=== PATIENT | female | born 1960 | race Caucasian/White ===

== ENCOUNTER 2017-05-02 16:58 | Emergency (ER) | payer SELFPAY ==
[~2017-05-02 16:58] MED LIST: Z.0.NO CURRENT MEDS
[2017-05-02 17:05] VITALS: BP 185/89; PULSE 81; RESP 18; TEMP 98.4; O2SAT 97
[2017-05-02] MEDS ORDERED: MORPHINE SULFATE 4 MG/ML INJ IV PUSH ONE (17:30)
[2017-05-02] MEDS ORDERED: SODIUM CHLOR 0.9% 1000 ML INJ 1,000 ML IV SCH (17:30)
[2017-05-02] MEDS ORDERED: ONDANSETRON HCL 4 MG/2 ML VIAL IV PUSH ONE (17:30)
--- NOTE | 2017-05-02 17:32 | PD ---
HPI Chief Complaint: Cardiac Complaint Time Seen by Provider: 17:05 Travel History International Travel<30 days: No Contact w/Intl Traveler<30days: No Traveled to known affect area: No History of Present Illness HPI 56 years old female complains of chest pain and upper back pain. Patient states that the symptoms started 2 days ago. Patient states the pain is sharp stabbing pain between her shoulder blade with radiation to the shoulder and anterior chest. Patient denies any fever chills. Patient states the pain is worse with movement and deep breathing. Patient denies any history of CAD. Patient denies any history of attention, diabetes, hyperlipidemia. Patient is a smoker. Patient has family history of heart disease. Patient states that she has mild dry cough recently. Patient states that she has some tightness around the chest wall also. Patient has diaphoresis with the pain. on a scale of 1-10 the pain is an 8. Patient has been taking ibuprofen without much relief of the pain. PFSH Past Medical History Autoimmune Disease: No Blood Disorders: No Cancer: No Cardiovascular Problems: No Diminished Hearing: No Musculoskeletal: No Neurologic: No Psychiatric: No Respiratory: No Menopausal: Yes Ectopic : Yes (x 2) Past Surgical History Abdominal Surgery: No Cardiac Surgery: No Section: Yes Cholecystectomy: Yes Ear Surgery: No Endocrine Surgery: No Eye Surgery: No Genitourinary Surgery: No Gynecologic Surgery: Yes (1986 , ECTOPIC) Hysterectomy: Yes Oral Surgery: No Thoracic Surgery: No Social History Alcohol Use: Yes (ON OCCASION) Tobacco Use: Yes (SMOKES <1 PPD) Substance Use: No Allergies-Medications (Allergen,Severity, Reaction): Coded Allergies: codeine (Unverified Allergy, Mild, ITCH, 04/30/17) Reported Meds & Prescriptions Reported Meds & Active Scripts Active No Active Prescriptions or Reported Medications Review of Systems General / Constitutional: No: Fever Eyes: No: Visual changes HENT: No: Headaches Cardiovascular: Positive: Chest Pain or Discomfort Respiratory: No: Shortness of Breath Gastrointestinal: No: Abdominal Pain Genitourinary: No: Dysuria Musculoskeletal: No: Pain Skin: No Rash Neurologic: No: Weakness Psychiatric: No: Depression Endocrine: No: Polydipsia Hematologic/Lymphatic: No: Easy Bruising Physical Exam Narrative GENERAL: Well-nourished, well-developed patient. SKIN: Focused skin assessment warm/dry. HEAD: Normocephalic. EYES: No scleral icterus. No injection or drainage. NECK: Supple, trachea midline. No JVD or lymphadenopathy. CARDIOVASCULAR: Regular rate and rhythm without murmurs, gallops, or rubs. RESPIRATORY: Breath sounds equal bilaterally. No accessory muscle use. GASTROINTESTINAL: Abdomen soft, non-tender, nondistended. MUSCULOSKELETAL: No cyanosis, or edema. BACK: Moderate tenderness on palpation thoracic area, without obvious deformity. No CVA tenderness. Neurologic exam normal. Data Data Last Documented VS Vital Signs Date Time Temp Pulse Resp B/P Pulse Ox O2 Delivery O2 Flow Rate FiO2 05/02/17 17:27 Room Air 05/02/17 17:05 98.4 81 18 185/89 97 Orders Electrocardiogram (05/02/17 17:10) Complete Blood Count With Diff (05/02/17 17:10) Comprehensive Metabolic Panel (05/02/17 17:10) Creatine Kinase (Cpk) (05/02/17 17:10) Troponin I (05/02/17 17:10) Prothrombin Time / Inr (Pt) (05/02/17 17:10) Act Partial Throm Time (Ptt) (05/02/17 17:10) Chest, Single Ap (05/02/17 17:10) Iv Access Insert/Monitor (05/02/17 17:10) Ecg Monitoring (05/02/17 17:10) Oximetry (05/02/17 17:10) Cta Chest W Iv Contrast W 3d (05/02/17 17:10) Sodium Chlor 0.9% 1000 Ml Inj (Ns 1000 M (05/02/17 17:30) Morphine Inj (Morphine Inj) (05/02/17 17:30) Ondansetron Inj (Zofran Inj) (05/02/17 17:30) Labs Laboratory Tests Test 05/02/17 17:20 White Blood Count 9.5 TH/MM3 Red Blood Count 4.34 MIL/MM3 Hemoglobin 13.1 GM/DL Hematocrit 37.1 % Mean Corpuscular Volume 85.5 FL Mean Corpuscular Hemoglobin 30.2 PG Mean Corpuscular Hemoglobin 35.3 % Concent Red Cell Distribution Width 13.2 % Platelet Count 336 TH/MM3 Mean Platelet Volume 7.5 FL Neutrophils (%) (Auto) 56.7 % Lymphocytes (%) (Auto) 30.6 % Monocytes (%) (Auto) 8.4 % Eosinophils (%) (Auto) 3.1 % Basophils (%) (Auto) 1.2 % Neutrophils # (Auto) 5.4 TH/MM3 Lymphocytes # (Auto) 2.9 TH/MM3 Monocytes # (Auto) 0.8 TH/MM3 Eosinophils # (Auto) 0.3 TH/MM3 Basophils # (Auto) 0.1 TH/MM3 CBC Comment DIFF FINAL Differential Comment MDM Medical Decision Making Medical Screen Exam Complete: Yes Emergency Medical Condition: Yes Interpretation(s) Last Impressions Chest X-Ray 05/02/17 1710 Signed Impressions: Service Date/Time: , May 02, 2017 17:24 - CONCLUSION: No acute disease. Rayray Flannery MD 1805 p.m. CBC within normal limit. Differential Diagnosis Differential diagnosis including musculoskeletal, angina, NH, PE, pneumothorax, aortic dissection. Narrative Course 56 years old female with upper back pain with radiation to the front of the chest. Normal saline solution 1 25 cc an hour. Morphine 2 mg IV. Zofran 4 mg IV. Scripts No Active Prescriptions or Reported Meds Phil Contreras MD May 02, 2017 17:32
--- NOTE | 2017-05-02 17:38 | RADRPT ---
EXAM DATE/TIME: 05/02/2017 17:24 [facility] COMPARISON: No previous studies available for comparison. INDICATIONS : Chest pain. MEDICAL HISTORY : None. SURGICAL HISTORY : Appendectomy. ENCOUNTER: Initial ACUITY: 3 days PAIN SCORE: 9/10 LOCATION: Bilateral chest FINDINGS: A single view of the chest demonstrates the lungs to be symmetrically aerated without evidence of mas s, infiltrate or effusion. The cardiomediastinal contours are unremarkable. Osseous structures are intact. CONCLUSION: No acute disease. Rayray Flannery MD on May 02, 2017 at 17:37 Board Certified Radiologist. This report was verified electronically.
[2017-05-02 17:49] LABS: AUTOMATED NEUTROPHIL # 5.4 TH/MM3 (1.8-7.7); BASOPHIL # 0.1 TH/MM3 (0-0.2); BASOPHIL % 1.2 % (0.0-2.0); EOSINOPHIL # 0.3 TH/MM3 (0-0.4); EOSINOPHIL % 3.1 % (0.0-4.0); HEMATOCRIT 37.1 % (35.0-46.0); HEMO FLAGS DIFF FINAL; LYMPH % 30.6 % (9.0-44.0); LYMPHOCYTE # 2.9 TH/MM3 (1.0-4.8); MEAN CELL VOLUME 85.5 FL (80.0-100.0); MEAN CORPUSCULAR HEMOGLOBIN 30.2 PG (27.0-34.0); MEAN CORPUSCULAR HGB CONC 35.3 % (32.0-36.0); MONO % 8.4 % (0.0-8.0); NEUT % 56.7 % (16.0-70.0); PLATELET COUNT 336 TH/MM3 (150-450); RED BLOOD COUNT 4.34 MIL/MM3 (4.00-5.30); RED CELL DISTRIBUTION WIDTH 13.2 % (11.6-17.2); WHITE BLOOD COUNT 9.5 TH/MM3 (4.0-11.0)
[2017-05-02 18:09] LABS: ALT (GPT) 23 U/L (10-53); ANION GAP 8 MEQ/L (5-15); AST (GOT) 14 U/L (15-37); BICARBONATE 26.5 MEQ/L (21.0-32.0); BLOOD UREA NITROGEN 9 MG/DL (7-18); CHLORIDE 105 MEQ/L (98-107); GLOMERULAR FILTRATION RATE 66 ML/MIN (>89); POTASSIUM 3.2 MEQ/L (3.5-5.1); SODIUM (NA) 139 MEQ/L (136-145)
[2017-05-02 18:13] LABS: ALKALINE PHOSPHATASE 42 U/L (45-117); CREATINE KINASE 173 U/L (26-192); TOTAL BILIRUBIN ADULT 0.2 MG/DL (0.2-1.0)
[2017-05-02 18:18] LABS: APTT (PATIENT) 28.5 SEC (24.3-30.1); PROTHROMBIN TIME - PATIENT 10.9 SEC (9.8-11.6)
[2017-05-02] MEDS ORDERED: IOHEXOL 350 MG/ML 10 ML VIAL (for RAD DIAG) IV ONE (18:47)
[2017-05-02 19:32] VITALS: BP 150/79; PULSE 66; RESP 18; O2SAT 97
--- NOTE | 2017-05-02 19:55 | RADRPT ---
EXAM DATE/TIME: 05/02/2017 18:36 [facility] COMPARISON: No previous studies available for comparison. INDICATIONS : Pain between shoulder blades and chest for two days. IV CONTRAST: 62 cc Omnipaque 350 (iohexol) IV RADIATION DOSE: 6.10 CTDIvol (mGy) MEDICAL HISTORY : None SURGICAL HISTORY : Cholecystectomy. Hysterectomy. section. ENCOUNTER: Initial ACUITY: 2 days PAIN SCALE: 9/10 LOCATION: Bilateral chest TECHNIQUE: Volumetric scanning was performed using a multi-row detector CT scanner. The data was post processed with a variety of visualization algorithms including full volume maximum intensity projection, multi -planar sliding thin slab reformation, curved planar reformation, and surface rendering techniques. Using automated exposure control and adjustment of the mA and/or kV according to patient size, radiat ion dose was kept as low as reasonably achievable to obtain optimal diagnostic quality images. DICOM format image data is available electronically for review and comparison. FINDINGS: There is aneurysmal dilatation of the ascending aorta to 4.2 cm. Transverse and descending thoracic a kimberly within normal range. No abdominal aortic aneurysm. There is moderate atherosclerotic change. The re is no aortic dissection. Dependent atelectasis present in the lungs. Mild emphysema. There are moderate coronary calcification s. No acute findings identified within the abdomen. Bladder is mildly distended. No bowel obstruction. N o free air or free fluid. Appendix is normal. CONCLUSION: 1. 4.2 cm ascending aortic aneurysm. Remainder of thoracic aorta and abdominal aorta have normal cosme kelly. No dissection. Previous cholecystectomy. Steve Celaya MD on May 02, 2017 at 19:46 Board Certified Radiologist. This report was verified electronically.
[2017-05-02] MEDS ORDERED: HYDR-3534 PO (20:18)
[2017-05-02] MEDS ORDERED: CYCL1TAB29 PO (20:18)
--- NOTE | 2017-05-02 20:18 | PD ---
Physical Exam Date Seen by Provider: May 02, 2017 Narrative PATIENT CURRENTLY HAS NO ACUTE PAIN, UNLESS SHE MOVES AROUND OR HAS HER BACK MUSCLES PRESSED....AT REST THOUGH PAIN IS 0/10....GENERAL: SKIN: Warm and dry. HEAD: Atraumatic. Normocephalic. EYES: Pupils equal and round. No scleral icterus. No injection or drainage. ENT: No nasal bleeding or discharge. Mucous membranes pink and moist. NECK: Trachea midline. No JVD. CARDIOVASCULAR: Regular rate and rhythm. RESPIRATORY: No accessory muscle use. Clear to auscultation. Breath sounds equal bilaterally. GASTROINTESTINAL: Abdomen soft, non-tender, nondistended. MUSCULOSKELETAL: Extremities without clubbing, cyanosis, or edema. No obvious deformities. COMPLETELY REPRODUCIBLE ILIOTHORACICUS TTP ON MUSCLES NEUROLOGICAL: Awake and alert. No obvious cranial nerve deficits. Motor grossly within normal limits. Five out of 5 muscle strength in the arms and legs. Normal speech. PSYCHIATRIC: Appropriate mood and affect; insight and judgment normal. Data Data Last Documented VS Vital Signs Date Time Temp Pulse Resp B/P Pulse Ox O2 Delivery O2 Flow Rate FiO2 05/02/17 19:32 66 18 150/79 97 Room Air 05/02/17 17:05 98.4 Orders Electrocardiogram (05/02/17 17:10) Complete Blood Count With Diff (05/02/17 17:10) Comprehensive Metabolic Panel (05/02/17 17:10) Creatine Kinase (Cpk) (05/02/17 17:10) Troponin I (05/02/17 17:10) Prothrombin Time / Inr (Pt) (05/02/17 17:10) Act Partial Throm Time (Ptt) (05/02/17 17:10) Chest, Single Ap (05/02/17 17:10) Iv Access Insert/Monitor (05/02/17 17:10) Ecg Monitoring (05/02/17 17:10) Oximetry (05/02/17 17:10) Sodium Chlor 0.9% 1000 Ml Inj (Ns 1000 M (05/02/17 17:30) Morphine Inj (Morphine Inj) (05/02/17 17:30) Ondansetron Inj (Zofran Inj) (05/02/17 17:30) Cta Thor Abd Aorta W Iv C W3d (05/02/17 17:10) Iohexol 350 Inj (Omnipaque 350 Inj) (05/02/17 18:47) Labs Laboratory Tests Test 05/02/17 17:20 White Blood Count 9.5 TH/MM3 Red Blood Count 4.34 MIL/MM3 Hemoglobin 13.1 GM/DL Hematocrit 37.1 % Mean Corpuscular Volume 85.5 FL Mean Corpuscular Hemoglobin 30.2 PG Mean Corpuscular Hemoglobin 35.3 % Concent Red Cell Distribution Width 13.2 % Platelet Count 336 TH/MM3 Mean Platelet Volume 7.5 FL Neutrophils (%) (Auto) 56.7 % Lymphocytes (%) (Auto) 30.6 % Monocytes (%) (Auto) 8.4 % Eosinophils (%) (Auto) 3.1 % Basophils (%) (Auto) 1.2 % Neutrophils # (Auto) 5.4 TH/MM3 Lymphocytes # (Auto) 2.9 TH/MM3 Monocytes # (Auto) 0.8 TH/MM3 Eosinophils # (Auto) 0.3 TH/MM3 Basophils # (Auto) 0.1 TH/MM3 CBC Comment DIFF FINAL Differential Comment Prothrombin Time 10.9 SEC Prothromb Time International 1.0 RATIO Ratio Activated Partial 28.5 SEC Thromboplast Time Sodium Level 139 MEQ/L Potassium Level 3.2 MEQ/L Chloride Level 105 MEQ/L Carbon Dioxide Level 26.5 MEQ/L Anion Gap 8 MEQ/L Blood Urea Nitrogen 9 MG/DL Creatinine 0.88 MG/DL Estimat Glomerular Filtration 66 ML/MIN Rate Random Glucose 68 MG/DL Calcium Level 8.2 MG/DL Total Bilirubin 0.2 MG/DL Aspartate Amino Transf 14 U/L (AST/SGOT) Alanine Aminotransferase 23 U/L (ALT/SGPT) Alkaline Phosphatase 42 U/L Total Creatine Kinase 173 U/L Troponin I LESS THAN 0.02 NG/ML Total Protein 6.8 GM/DL Albumin 3.7 GM/DL [facility] Medical Record Reviewed: Yes Supervised Visit with ARPAN: No Narrative Course NEWLY DIAGNOSED, NONSYMPTOMATIC ASCENDING THORACIC AORTIC ANEURYSM (NO RUPTURE NO DISSECTION). CASE D/W BIJAL, WHO WILL FOLLOW UP Diagnosis Primary Impression: MUSCLE SPASM Additional Impression: Ascending aortic aneurysm Referrals: Meagan Bangura MD FOR FURTHER CARE OF YOUR 4.2CM ASCENDING THORACIC AORTA Scripts Cyclobenzaprine (Flexeril)10 Mg Tab10 Mg PO TID #21 TAB Prov:Silver Carlisle MD 05/02/17 Hydrocodone-Acetaminophen (Lortab)7.5-325 Mg Tab1 Tab PO Q6H PRN (PAIN) #20 TAB Prov:Silver Carlisle MD 05/02/17 Disposition: 01 DISCHARGE HOME Condition: Stable Silver Carlisle MD May 02, 2017 20:18
[2017-05-02] MEDS ORDERED: LORazepam 2 MG/ML VIAL IV PUSH ONE (20:30)
--- NOTE | 2017-05-03 09:19 | EKG ---
Date Performed: 05/02/2017 Time Performed: 17:25:07 PTAGE: 56 years EKG: Sinus rhythm NORMAL ECG Compared to prior tracing no significant change PREVIOUS TRACING : 06/15/2005 11.22 DOCTOR: Familia Nichols Interpretating Date/Time 05/03/2017 09:16:54
== END 2017-05-02 21:38 | disposition home or self-care (01) ==
LOC: NEPE 16:58
DX: M62.838 Other muscle spasm (principal); I71.2 Thoracic aortic aneurysm, without rupture; F17.200 Nicotine dependence, unspecified, uncomplicated; Z88.5 Allergy status to narcotic agent
CPT/HCPCS: 71010; 71275; 74174; 80053; 82550; 84484; 85025; 85610; 85730; 93005; 96361; 96374; 96375; 99285; J2060; J2270; J2405; J7030; Q9967

== ENCOUNTER 2017-06-14 11:10 | Emergency (ER) | payer SELFPAY ==
[~2017-06-14] VITALS: Ht 167.6 cm; Wt 68.0 kg
[~2017-06-14 11:10] MED LIST changes: +CYCL1TAB29 PO; +HYDR-3534 PO; -Z.0.NO CURRENT MEDS
[2017-06-14 11:36] VITALS: BP 184/100; PULSE 73; RESP 16; TEMP 98.6; O2SAT 98
[2017-06-14] MEDS ORDERED: SODIUM CHLORIDE 0.9% FLUSH 10 ML FLUSH IVF PRN (12:15)
[2017-06-14] MEDS ORDERED: LABETALOL HCL 100 MG/20 ML VIAL IV PUSH ONE (12:15)
[2017-06-14 12:23] VITALS: BP 162/91; PULSE 68; RESP 16; O2SAT 96
[2017-06-14 12:25] VITALS: BP_SYST 149; BP_SYST 162; BP_DIAS 84; BP_DIAS 91; PULSE 70
--- NOTE | 2017-06-14 12:30 | PD ---
HPI Chief Complaint: Musculoskeletal Complaint Time Seen by Provider: 11:55 Travel History International Travel<30 days: No Contact w/Intl Traveler<30days: No Traveled to known affect area: No History of Present Illness HPI Patient comes back to the emergency department complaining of continued right shoulder, bilateral scapular pain, neck pain, and right lower extremity pain. Patient states she did start having a headache 3 days ago which is new. Denies any change in vision, numbness or tingling anywhere, loss change in bowel or bladder, shortness of breath, fevers, abdominal pain, or trauma. Patient describes pain as sharp and soreness without radiation. Denies anything making it better. Pain is worse with certain movement. Patient also complaining of a tightness throughout her chest as well. Patient reports her symptoms of been going on for several months. Patient states that she was here last time she was told about a thoracic aortic aneurysm but has not been able follow-up yet. Patient states after being seen here previously she went to another hospital to get a second opinion and was prescribed metoprolol 25 mg twice a day for her blood pressure that she is currently out. PFSH Past Medical History Narrative Medical Thoracic aortic aneurysm Autoimmune Disease: No Blood Disorders: No Cancer: No Cardiovascular Problems: No Diminished Hearing: No Musculoskeletal: No Neurologic: No Psychiatric: No Respiratory: No ?: Unknown Menopausal: Yes Ectopic : Yes (x 2) Past Surgical History Abdominal Surgery: No Cardiac Surgery: No Section: Yes Cholecystectomy: Yes Ear Surgery: No Endocrine Surgery: No Eye Surgery: No Genitourinary Surgery: No Gynecologic Surgery: Yes (1986 , ECTOPIC) Hysterectomy: Yes Oral Surgery: No Thoracic Surgery: No Social History Alcohol Use: No Tobacco Use: No Substance Use: No Allergies-Medications (Allergen,Severity, Reaction): Coded Allergies: codeine (Unverified Allergy, Mild, ITCH, 04/30/17) Reported Meds & Prescriptions Reported Meds & Active Scripts Active Metoprolol Tartrate 25 Mg Tab 25 Mg PO BID Flexeril (Cyclobenzaprine HCl) 10 Mg Tab 10 Mg PO TID Lortab (Hydrocodone-Acetaminophen) 7.5-325 Mg Tab 1 Tab PO Q6H PRN Review of Systems Except as stated in HPI: all other systems reviewed are Neg Physical Exam Narrative GENERAL: Well-developed, well nourished, in no acute distress, and non-ill appearing. SKIN: Focused skin assessment warm and dry. HEAD: Atraumatic. Normocephalic. EYES: Pupils equal and round. EOMI. No scleral icterus. No injection or drainage. ENT: No nasal bleeding or discharge. Mucous membranes pink and moist. NECK: Trachea midline. No JVD. Supple. No nuclear rigidity. No tenderness or crepitus over the midline cervical spine. CARDIOVASCULAR: Regular rate and rhythm. No murmur appreciated. Radial and dorsal pulses 2+, intact, and equal bilaterally. Capillary refill less than 2 seconds. RESPIRATORY: No accessory muscle use. No respiratory distress. Clear to auscultation. Breath sounds equal bilaterally. MUSCULOSKELETAL: No obvious deformities. No clubbing. No cyanosis. No edema. Full range of motion. Shoulder:FROM equal BL with passive flexion, extension, Abduction, Adduction, internal/external rotation, and pronation/supination. Sensation equal BL deltoid muscles. Pulses equal BL distal to injury. Capillary refill less than 2 seconds distal to injury and equal BL. FROM distal to injury and equal BL. Strength distal to injury equal BL. NV intact distal to injury equal BL. Flexion and extension of thumb equal BL. Equal strength and movement with abduction/adductions of BL fingers. Flask Carrier strength equal BL. Hip: FROM and equal BL with passive flexion, extension, Abduction, Adduction, and internal/external rotation. Pulses equal BL distal to injury. Capillary refill less than 2 seconds distal to injury and equal BL. FROM distal to injury and equal BL. Strength distal to injury equal BL. NV intact distal to injury and equal BL. Plantar flexion and dorsal flexion equal BL. Dorsal pulses equal BL. Sensation equal BL 1st web space. NEUROLOGICAL: Awake and alert. No obvious cranial nerve deficits. Motor grossly within normal limits. Normal speech. PSYCHIATRIC: Appropriate mood and affect; insight and judgment normal. Data Data Last Documented VS Vital Signs Date Time Temp Pulse Resp B/P (MAP) Pulse Ox O2 Delivery O2 Flow Rate FiO2 06/14/17 15:20 75 16 141/79 (99) 96 06/14/17 14:58 Room Air 06/14/17 11:36 98.6 Orders Orders Electrocardiogram (06/14/17 ) Basic Metabolic Panel (Bmp) (06/14/17 12:09) Ckmb (Isoenzyme) Profile (06/14/17 12:09) Complete Blood Count With Diff (06/14/17 12:09) Magnesium (Mg) (06/14/17 12:09) Prothrombin Time / Inr (Pt) (06/14/17 12:09) Act Partial Throm Time (Ptt) (06/14/17 12:09) Troponin I (06/14/17 12:09) Chest, Single Ap (06/14/17 12:09) Ecg Monitoring (06/14/17 12:09) Bilateral Bp Monitoring (06/14/17 12:09) Iv Access Insert/Monitor (06/14/17 12:09) Oximetry (06/14/17 12:09) Oxygen Administration (06/14/17 12:09) Sodium Chloride 0.9% Flush (Ns Flush) (06/14/17 12:15) Labetalol Inj (Trandate Inj) (06/14/17 12:15) Cta Thor Abd Aorta W Iv C W3d (06/14/17 ) Ct Brain W/O Iv Contrast(Rout) (06/14/17 ) Morphine Inj (Morphine Inj) (06/14/17 12:45) Ondansetron Inj (Zofran Inj) (06/14/17 12:45) CKMB (06/14/17 12:30) CKMB% (06/14/17 12:30) Iohexol 350 Inj (Omnipaque 350 Inj) (06/14/17 14:15) Mandatory Outpatient Referral (06/14/17 15:07) Labs Laboratory Tests Test 06/14/17 12:30 White Blood Count 8.1 TH/MM3 Red Blood Count 4.65 MIL/MM3 Hemoglobin 13.6 GM/DL Hematocrit 40.2 % Mean Corpuscular Volume 86.5 FL Mean Corpuscular Hemoglobin 29.4 PG Mean Corpuscular Hemoglobin Concent 34.0 % Red Cell Distribution Width 13.1 % Platelet Count 302 TH/MM3 Mean Platelet Volume 7.8 FL Neutrophils (%) (Auto) 59.7 % Lymphocytes (%) (Auto) 27.5 % Monocytes (%) (Auto) 7.4 % Eosinophils (%) (Auto) 4.1 % Basophils (%) (Auto) 1.3 % Neutrophils # (Auto) 4.8 TH/MM3 Lymphocytes # (Auto) 2.2 TH/MM3 Monocytes # (Auto) 0.6 TH/MM3 Eosinophils # (Auto) 0.3 TH/MM3 Basophils # (Auto) 0.1 TH/MM3 CBC Comment DIFF FINAL Differential Comment Prothrombin Time 10.5 SEC Prothromb Time International Ratio 1.0 RATIO Activated Partial Thromboplast Time 25.6 SEC Blood Urea Nitrogen 10 MG/DL Creatinine 0.62 MG/DL Random Glucose 69 MG/DL Calcium Level 8.7 MG/DL Magnesium Level 2.2 MG/DL Sodium Level 138 MEQ/L Potassium Level 3.6 MEQ/L Chloride Level 106 MEQ/L Carbon Dioxide Level 25.8 MEQ/L Anion Gap 6 MEQ/L Estimat Glomerular Filtration Rate 100 ML/MIN Total Creatine Kinase 123 U/L Creatine Kinase MB 1.1 NG/ML Troponin I LESS THAN 0.02 NG/ML MDM Medical Decision Making Medical Screen Exam Complete: Yes Emergency Medical Condition: Yes Interpretation(s) EKG reviewed by Dr. Terrazas shows normal sinus rhythm with rate of 64. No STEMI. Last Impressions Chest X-Ray 06/14/17 1209 Signed Impressions: Service Date/Time: Wednesday, June 14, 2017 12:37 - CONCLUSION: 1. No acute cardiopulmonary disease. Balat Schuster MD Head CT 06/14/17 0000 Signed Impressions: Service Date/Time: Wednesday, June 14, 2017 14:02 - CONCLUSION: 1. No acute intracranial normality. 2. Left ethmoid sinus mucosal disease. Balta Schuster MD CT of the aorta read by the radiologist shows: Stable minimal dilatation ascending aorta. No interval change from 05/02/2017. Differential Diagnosis Acute coronary syndrome, aortic dissection, chronic musculoskeletal pain, uncontrolled hypertension, electrolyte abnormality, dehydration, anemia, headache, intracranial hemorrhage, other Narrative Course Laboratory Tests Test 06/14/17 12:30 White Blood Count 8.1 TH/MM3 (4.0-11.0) Red Blood Count 4.65 MIL/MM3 (4.00-5.30) Hemoglobin 13.6 GM/DL (11.6-15.3) Hematocrit 40.2 % (35.0-46.0) Mean Corpuscular Volume 86.5 FL (80.0-100.0) Mean Corpuscular Hemoglobin 29.4 PG (27.0-34.0) Mean Corpuscular Hemoglobin Concent 34.0 % (32.0-36.0) Red Cell Distribution Width 13.1 % (11.6-17.2) Platelet Count 302 TH/MM3 (150-450) Mean Platelet Volume 7.8 FL (7.0-11.0) Neutrophils (%) (Auto) 59.7 % (16.0-70.0) Lymphocytes (%) (Auto) 27.5 % (9.0-44.0) Monocytes (%) (Auto) 7.4 % (0.0-8.0) Eosinophils (%) (Auto) 4.1 % (0.0-4.0) Basophils (%) (Auto) 1.3 % (0.0-2.0) Neutrophils # (Auto) 4.8 TH/MM3 (1.8-7.7) Lymphocytes # (Auto) 2.2 TH/MM3 (1.0-4.8) Monocytes # (Auto) 0.6 TH/MM3 (0-0.9) Eosinophils # (Auto) 0.3 TH/MM3 (0-0.4) Basophils # (Auto) 0.1 TH/MM3 (0-0.2) CBC Comment DIFF FINAL Differential Comment Prothrombin Time 10.5 SEC (9.8-11.6) Prothromb Time International Ratio 1.0 RATIO Activated Partial Thromboplast Time 25.6 SEC (24.3-30.1) Blood Urea Nitrogen 10 MG/DL (7-18) Creatinine 0.62 MG/DL (0.50-1.00) Random Glucose 69 MG/DL (74-106) Calcium Level 8.7 MG/DL (8.5-10.1) Magnesium Level 2.2 MG/DL (1.5-2.5) Sodium Level 138 MEQ/L (136-145) Potassium Level 3.6 MEQ/L (3.5-5.1) Chloride Level 106 MEQ/L (98-107) Carbon Dioxide Level 25.8 MEQ/L (21.0-32.0) Anion Gap 6 MEQ/L (5-15) Estimat Glomerular Filtration Rate 100 ML/MIN (>89) Total Creatine Kinase 123 U/L (26-192) Creatine Kinase MB 1.1 NG/ML (0.5-3.6) Troponin I LESS THAN 0.02 NG/ML Patient in no obvious distress upon re-evaluation. All pertinent laboratory/ Radiology result(s) discussed with patient. This patient with Dr. Terrazas prior to discharge, who is in agreement with plan of care and disposition. Patient was asked if they wanted to speak to my attending, which the patient did not wish to do at this time. Any questions/concerns in reference to patient diagnosis/condition discussed and clarified prior to patient's discharge. Reinforced sheer importance of close follow up with patient's primary physician or primary care clinic. Instructed patient to return to ED immediately, if symptoms return/worsen. Patient showed understanding of above instructions. Further instructions and recommendations were detailed in discharge paperwork. Patient ambulated without difficulty out of ED at discharge. Diagnosis Primary Impression: Musculoskeletal pain Additional Impressions: Ascending aortic aneurysm Hypertension Qualified Codes: I10 - Essential (primary) hypertension Referrals: [facility] Patient Instructions: General Instructions, Hypertension (ED), Musculoskeletal Pain (ED) Additional Instructions: Follow-up with your primary care physician or primary care clinic next week for reevaluation. Follow-up with cardiothoracic surgeon as soon as possible further evaluation of your aneurysm. Take all medication as prescribed. Use [id number] Tylenol and/or ibuprofen as needed for pain. Follow instructions on the packaging. Return to the emergency department if symptoms get worse. Med/Other Pt SpecificInfo: Prescription(s) given Scripts Metoprolol Tartrate (Metoprolol Tartrate) 25 Mg Tab 25 MG PO BID, #60 TAB 0 Refills Prov: Elsy Terrazas MD 06/14/17 Disposition: 01 DISCHARGE HOME Condition: Stable Marc Gardiner Jun 14, 2017 12:30
[2017-06-14 12:39] LABS: AUTOMATED NEUTROPHIL # 4.8 TH/MM3 (1.8-7.7); BASOPHIL # 0.1 TH/MM3 (0-0.2); BASOPHIL % 1.3 % (0.0-2.0); EOSINOPHIL # 0.3 TH/MM3 (0-0.4); EOSINOPHIL % 4.1 % (0.0-4.0); HEMATOCRIT 40.2 % (35.0-46.0); HEMO FLAGS DIFF FINAL; LYMPH % 27.5 % (9.0-44.0); LYMPHOCYTE # 2.2 TH/MM3 (1.0-4.8); MEAN CELL VOLUME 86.5 FL (80.0-100.0); MEAN CORPUSCULAR HEMOGLOBIN 29.4 PG (27.0-34.0); MONO % 7.4 % (0.0-8.0); NEUT % 59.7 % (16.0-70.0); PLATELET COUNT 302 TH/MM3 (150-450); RED BLOOD COUNT 4.65 MIL/MM3 (4.00-5.30); RED CELL DISTRIBUTION WIDTH 13.1 % (11.6-17.2); WHITE BLOOD COUNT 8.1 TH/MM3 (4.0-11.0)
[2017-06-14] MEDS ORDERED: MORPHINE SULFATE 4 MG/ML INJ IV PUSH ONE (12:45)
[2017-06-14] MEDS ORDERED: ONDANSETRON HCL 4 MG/2 ML VIAL IV PUSH ONE (12:45)
[2017-06-14 12:50] LABS: APTT (PATIENT) 25.6 SEC (24.3-30.1); PROTHROMBIN TIME - PATIENT 10.5 SEC (9.8-11.6)
[2017-06-14 13:05] LABS: ANION GAP 6 MEQ/L (5-15); BICARBONATE 25.8 MEQ/L (21.0-32.0); BLOOD UREA NITROGEN 10 MG/DL (7-18); CHLORIDE 106 MEQ/L (98-107); GLOMERULAR FILTRATION RATE 100 ML/MIN (>89); MAGNESIUM 2.2 MG/DL (1.5-2.5); POTASSIUM 3.6 MEQ/L (3.5-5.1); SODIUM (NA) 138 MEQ/L (136-145)
[2017-06-14 13:08] LABS: CREATINE KINASE 123 U/L (26-192)
--- NOTE | 2017-06-14 13:11 | RADRPT ---
EXAM DATE/TIME: 06/14/2017 12:37 [facility] COMPARISON: CHEST SINGLE AP, May 02, 2017, 17:24. INDICATIONS : Chest pain. MEDICAL HISTORY : Pt. states she has an aortic aneurysm. SURGICAL HISTORY : None. ENCOUNTER: Initial ACUITY: 1 month PAIN SCORE: 8/10 LOCATION: Bilateral chest FINDINGS: A single view of the chest demonstrates the lungs to be symmetrically aerated without evidence of mas s, infiltrate or effusion. The cardiomediastinal contours are unremarkable. Osseous structures are intact. CONCLUSION: 1. No acute cardiopulmonary disease. Balta Schuster MD on June 14, 2017 at 13:09 Board Certified Radiologist. This report was verified electronically.
[2017-06-14 13:20] LABS: CKMB 1.1 NG/ML (0.5-3.6)
[2017-06-14] MEDS ORDERED: IOHEXOL 350 MG/ML 10 ML VIAL (for RAD DIAG) IVCONTRAST ONE (14:15)
--- NOTE | 2017-06-14 14:23 | RADRPT ---
EXAM DATE/TIME: 06/14/2017 14:02 [facility] COMPARISON: No previous studies available for comparison. INDICATIONS : Jaw pain, right arm pain. RADIATION DOSE: 38.20 CTDIvol (mGy) MEDICAL HISTORY : None SURGICAL HISTORY : Cholecystectomy. Hysterectomy.Etopic . ENCOUNTER: Initial ACUITY: 2 days PAIN SCALE: 7/10 LOCATION: Right cranial TECHNIQUE: Multiple contiguous axial images were obtained of the head. Using automated exposure control and adj ustment of the mA and/or kV according to patient size, radiation dose was kept as low as reasonably a chievable to obtain optimal diagnostic quality images. DICOM format image data is available electro nically for review and comparison. FINDINGS: CEREBRUM: The ventricles are normal for age. No evidence of midline shift, mass lesion, hemorrhage or acute in farction. No extra-axial fluid collections are seen. POSTERIOR FOSSA: The cerebellum and brainstem are intact. The 4th ventricle is midline. The cerebellopontine angle i s unremarkable. EXTRACRANIAL: The visualized portion of the orbits is intact. Mucoperiosteal thickening involving the left ethmoid air cells. Remaining paranasal sinuses are clear. SKULL: The calvaria is intact. No evidence of skull fracture. CONCLUSION: 1. No acute intracranial normality. 2. Left ethmoid sinus mucosal disease. Balta Schuster MD on June 14, 2017 at 14:21 Board Certified Radiologist. This report was verified electronically.
--- NOTE | 2017-06-14 14:49 | RADRPT ---
EXAM DATE/TIME: 06/14/2017 14:06 [facility] COMPARISON: CTA THORACIC ABDOMINAL AORTA W 3D RECON, May 02, 2017, 18:36. INDICATIONS : Right chest pain, right arm pain. IV CONTRAST: 96 cc Omnipaque 350 (iohexol) IV RADIATION DOSE: 14.83 CTDIvol (mGy) MEDICAL HISTORY : None SURGICAL HISTORY : Cholecystectomy. Hysterectomy. Ectopic . ENCOUNTER: Initial ACUITY: 2 days PAIN SCALE: 7/10 LOCATION: Right chest TECHNIQUE: Volumetric scanning was performed using a multi-row detector CT scanner. The data was post processed with a variety of visualization algorithms including full volume maximum intensity pr ojection, multi-planar sliding thin slab reformation, curved planar reformation, and surface renderin g techniques. Using automated exposure control and adjustment of the mA and/or kV according to patie nt size, radiation dose was kept as low as reasonably achievable to obtain optimal diagnostic quality images. DICOM format image data is available electronically for review and comparison. FINDINGS: Again seen is the ascending aortic aneurysm measuring 4 cm. Descending aorta is of nor mal size. There is no dissection. There is no pericardial effusion. There are no suspicious lung lesions identified. Scattered calcific plaque is seen in the descending aorta without aneurysmal dilatation. Both iliac arteries are widely patent. Review of source data reveals no axillary or mediastinal adenopathy. Scattered low density lesions are seen in the liver stable in the interval. Right and left adrenal g lands are unremarkable. Pancreas, adrenals and kidneys appear normal. There is no retroperitoneal adenopathy. Pelvic contents are unremarkable. CONCLUSION: Stable minimal dilatation ascending aorta. No interval change from 05/02/2017. Skinny Forbes MD FACR on June 14, 2017 at 14:37 Board Certified Radiologist. This report was verified electronically.
[2017-06-14 14:58] VITALS: BP 155/88; PULSE 80; RESP 16; O2SAT 97
[2017-06-14] MEDS ORDERED: METO25TA3 PO (15:05)
[2017-06-14 15:20] VITALS: BP 141/79
--- NOTE | 2017-06-14 16:53 | EKG ---
Date Performed: 06/14/2017 Time Performed: 11:54:52 PTAGE: 56 years EKG: Sinus rhythm NORMAL ECG PREVIOUS TRACING : 05/02/2017 17.25 No significant change from previous tracing noted. DOCTOR: Maximilian Oconnell Interpretating Date/Time 06/14/2017 16:52:07
== END 2017-06-14 15:25 | disposition home or self-care (01) ==
LOC: NEPE 11:10
DX: M79.1 Myalgia (principal); I71.2 Thoracic aortic aneurysm, without rupture; I10 Essential (primary) hypertension
CPT/HCPCS: 70450; 71010; 71275; 74174; 80048; 82550; 82552; 83735; 84484; 85025; 85610; 85730; 93005; 96374; 96375; 99285; J2270; J2405; Q9967

== ENCOUNTER 2017-11-23 11:03 | Observation (INO) | payer SELFPAY ==
[~2017-11-23] VITALS: Ht 167.6 cm; Wt 70.0 kg
[~2017-11-23 11:03] MED LIST changes: +CYCL10TA PO; -CYCL1TAB29 PO; +METO25TA3 PO
[2017-11-23 11:25] VITALS: BP 177/93; PULSE 81; RESP 19; TEMP 99.4; O2SAT 95
[2017-11-23 11:28] VITALS: O2SAT 98
[2017-11-23] MEDS ORDERED: SODIUM CHLORIDE 0.9% FLUSH 10 ML FLUSH IVF PRN (11:30)
[2017-11-23] MEDS ORDERED: SODIUM CHLORID 0.9% 500 ML INJ 500 ML IV ONE (11:30)
--- NOTE | 2017-11-23 11:31 | PD ---
HPI Chief Complaint: Chest Pain Time Seen by Provider: 11:22 Travel History International Travel<30 days: No Contact w/Intl Traveler<30days: No History of Present Illness HPI Patient is a 56-year-old female presenting to the emergency department for evaluation of bilateral scapular pain, muscle aches, dizziness, chest pain. Patient states the chest pain is localized to her left anterior chest wall, she reports the pain is intermittent. She states it is pressure-like occasionally. It has been on and off for several months. Patient reports that she has a thoracic aortic aneurysm which she has not followed up on. She also reports dizziness at times. The dizziness is worse with movement/position changes. Patient denies any shortness of breath, nausea, vomiting, abdominal pain. She denies any illicit drug use. She quit smoking in April 2017. Symptom onset was gradual, chronic appearing in nature. Symptom severity is moderate. There are no alleviating factors. Symptoms are exacerbated with movement. Patient states she has been off of her medications for several months. PFSH Past Medical History AAA: Yes Hypertension: Yes Menopausal: Yes Ectopic : Yes (x 2) Past Surgical History Abdominal Surgery: No Cardiac Surgery: No Section: Yes Cholecystectomy: Yes Ear Surgery: No Endocrine Surgery: No Eye Surgery: No Genitourinary Surgery: No Gynecologic Surgery: Yes (1986 , ECTOPIC) Hysterectomy: Yes Oral Surgery: No Thoracic Surgery: No Social History Alcohol Use: No Tobacco Use: No (Quit April 2017) Substance Use: No Allergies-Medications (Allergen,Severity, Reaction): Coded Allergies: codeine (Unverified Allergy, Mild, ITCH, 11/23/17) Reported Meds & Prescriptions Reported Meds & Active Scripts Active Metoprolol Tartrate 25 Mg Tab 25 Mg PO BID Flexeril (Cyclobenzaprine HCl) 10 Mg Tab 10 Mg PO TID Lortab (Hydrocodone-Acetaminophen) 7.5-325 Mg Tab 1 Tab PO Q6H PRN Review of Systems Except as stated in HPI: all other systems reviewed are Neg General / Constitutional: Positive: Chills, No: Fever HENT: Positive: Lightheadedness, No: Headaches Cardiovascular: Positive: Chest Pain or Discomfort, No: Tachycardia, Syncope, Edema Respiratory: No: Cough, Shortness of Breath Gastrointestinal: No: Nausea, Vomiting, Abdominal Pain Musculoskeletal: Positive: Myalgias, Cramping, Pain Neurologic: Positive: Dizziness, No: Focal Abnormalities, Change in Mentation Physical Exam Narrative GENERAL: Well-developed, well-nourished, alert female. Presenting in no acute distress. SKIN: Warm and dry. HEAD: Atraumatic. Normocephalic. EYES: Pupils equal and round. No scleral icterus. No injection or drainage. ENT: No nasal bleeding or discharge. Mucous membranes pink and moist. NECK: Trachea midline. No JVD. CARDIOVASCULAR: Regular rate and rhythm. RESPIRATORY: No accessory muscle use. Clear to auscultation. Breath sounds equal bilaterally. GASTROINTESTINAL: Abdomen soft, non-tender, nondistended. Hepatic and splenic margins not palpable. Positive bowel sounds, no rebound, no guarding. MUSCULOSKELETAL: Extremities without clubbing, cyanosis, or edema. No obvious deformities. Tenderness to palpation over bilateral scapula. 2+ pedal pulses bilaterally. Brisk less than 3 second capillary refill. NEUROLOGICAL: Awake and alert. No obvious cranial nerve deficits. Motor grossly within normal limits. Five out of 5 muscle strength in the arms and legs. Normal speech. PSYCHIATRIC: Appropriate mood and affect; insight and judgment normal. Data Data Last Documented VS Vital Signs Date Time Temp Pulse Resp B/P (MAP) Pulse Ox O2 Delivery O2 Flow Rate FiO2 11/23/17 12:21 81 17 156/73 (100) 98 Room Air 11/23/17 11:25 99.4 Orders Orders Electrocardiogram (11/23/17 11:) Ckmb (Isoenzyme) Profile (11/23/17 11:22) Complete Blood Count With Diff (11/23/17 11:) Comprehensive Metabolic Panel (11/23/17:) Magnesium (Mg) (11/23/17:) Prothrombin Time / Inr (Pt) (11/23/17 11:) Act Partial Throm Time (Ptt) (11/23/17 11:) Troponin I (11/23/17:) Lipase (11/23/17:22) Chest, Single Ap (11/23/17:) Ecg Monitoring (11/23/17:) Bilateral Bp Monitoring (11/23/17 11:) Iv Access Insert/Monitor (11/23/17:) Oximetry (3/10/18 11:22) Oxygen Administration (11/23/17 11:22) Sodium Chloride 0.9% Flush (Ns Flush) (11/23/17 11:30) Sodium Chlorid 0.9% 500 Ml Inj (Ns 500 M (11/23/17 11:30) Creatine Kinase (Cpk) (11/23/17 11:22) CKMB (11/23/17 11:30) CKMB% (11/23/17 11:30) Cta Thor Abd Aorta W Iv C W3d (11/23/17 ) Iohexol 350 Inj (Omnipaque 350 Inj) (11/23/17 14:14) Troponin I (11/23/17 14:47) Admit Order (Ed Use Only) (11/23/17 15:32) Labs Laboratory Tests Test 11/23/17 11:30 White Blood Count 9.6 TH/MM3 Red Blood Count 4.56 MIL/MM3 Hemoglobin 13.5 GM/DL Hematocrit 38.3 % Mean Corpuscular Volume 83.8 FL Mean Corpuscular Hemoglobin 29.6 PG Mean Corpuscular Hemoglobin Concent 35.3 % Red Cell Distribution Width 13.2 % Platelet Count 349 TH/MM3 Mean Platelet Volume 7.3 FL Neutrophils (%) (Auto) 64.0 % Lymphocytes (%) (Auto) 25.4 % Monocytes (%) (Auto) 7.9 % Eosinophils (%) (Auto) 1.9 % Basophils (%) (Auto) 0.8 % Neutrophils # (Auto) 6.1 TH/MM3 Lymphocytes # (Auto) 2.4 TH/MM3 Monocytes # (Auto) 0.8 TH/MM3 Eosinophils # (Auto) 0.2 TH/MM3 Basophils # (Auto) 0.1 TH/MM3 CBC Comment DIFF FINAL Differential Comment Prothrombin Time 10.4 SEC Prothromb Time International Ratio 1.0 RATIO Activated Partial Thromboplast Time 26.2 SEC Blood Urea Nitrogen 12 MG/DL Creatinine 0.77 MG/DL Random Glucose 84 MG/DL Total Protein 7.1 GM/DL Albumin 3.7 GM/DL Calcium Level 8.3 MG/DL Magnesium Level 2.1 MG/DL Alkaline Phosphatase 56 U/L Aspartate Amino Transf (AST/SGOT) 20 U/L Alanine Aminotransferase (ALT/SGPT) 21 U/L Total Bilirubin 0.1 MG/DL Sodium Level 137 MEQ/L Potassium Level 3.7 MEQ/L Chloride Level 104 MEQ/L Carbon Dioxide Level 26.6 MEQ/L Anion Gap 6 MEQ/L Estimat Glomerular Filtration Rate 78 ML/MIN Total Creatine Kinase 180 U/L Creatine Kinase MB 1.3 NG/ML Troponin I LESS THAN 0.02 NG/ML Lipase 143 U/L MDM Medical Decision Making Medical Screen Exam Complete: Yes Emergency Medical Condition: Yes Medical Record Reviewed: Yes Interpretation(s) Vital Signs Date Time Temp Pulse Resp B/P (MAP) Pulse Ox O2 Delivery O2 Flow Rate FiO2 11/23/17 11:28 98 Room Air 11/23/17 11:28 98 Room Air 11/23/17 11:25 99.4 81 19 177/93 (121) 95 Differential Diagnosis Musculoskeletal strain versus radiculopathy versus ACS versus USA versus AAA versus other Narrative Course Patient is a 56-year-old female presenting to the emergency department for evaluation of bilateral shoulder/scapular pain, back pain, intermittent chest pain. Patient had similar complaints in April and May 2017. She reports she is off of her blood pressure medications for several months. Labs and imaging ordered and pending. Patient's vital signs are stable. Initial EKG shows normal sinus rhythm with a rate of 78. Chest x-ray shows no acute disease CTA of the aorta shows no significant interval change. Mild dilatation of the ascending thoracic aorta unchanged. Diffuse atherosclerotic disease of the abdominal aorta and abdominal aorta diameter is within normal limits. Colonic diverticulosis again seen. Left adrenal nodule unchanged and likely represents an adenoma. Multiple hepatic cysts unchanged. CBC is unremarkable Chemistry with no acute findings Cardiac enzymes are negative 1 set Patient will be placed in chest pain center, she has been to the emergency department several times with the same complaints without any further or more extensive cardiac workup. Patient has a history of hypertension and tobacco use. She has risk factors that would predispose her to cardiac disease. Patient is agreeable to stay, plan of care discussed with my attending physician. Admit orders placed. Diagnosis Primary Impression: Chest pain Qualified Codes: R07.9 - Chest pain, unspecified Admitting Information Admitting Physician Requests: Aria Dangelo Nov 23, 2017 11:31
[2017-11-23 11:46] LABS: AUTOMATED NEUTROPHIL # 6.1 TH/MM3 (1.8-7.7); BASOPHIL # 0.1 TH/MM3 (0-0.2); BASOPHIL % 0.8 % (0.0-2.0); EOSINOPHIL # 0.2 TH/MM3 (0-0.4); EOSINOPHIL % 1.9 % (0.0-4.0); HEMATOCRIT 38.3 % (35.0-46.0); HEMOGLOBIN 13.5 GM/DL (11.6-15.3); LYMPH % 25.4 % (9.0-44.0); LYMPHOCYTE # 2.4 TH/MM3 (1.0-4.8); MEAN CELL VOLUME 83.8 FL (80.0-100.0); MEAN CORPUSCULAR HEMOGLOBIN 29.6 PG (27.0-34.0); MEAN CORPUSCULAR HGB CONC 35.3 % (32.0-36.0); MEAN PLATELET VOLUME 7.3 FL (7.0-11.0); MONO % 7.9 % (0.0-8.0); MONOCYTE # 0.8 TH/MM3 (0-0.9); PLATELET COUNT 349 TH/MM3 (150-450); RED BLOOD COUNT 4.56 MIL/MM3 (4.00-5.30); RED CELL DISTRIBUTION WIDTH 13.2 % (11.6-17.2); WHITE BLOOD COUNT 9.6 TH/MM3 (4.0-11.0)
[2017-11-23 11:56] LABS: PROTHROMBIN TIME - PATIENT 10.4 SEC (9.8-11.6)
[2017-11-23 12:06] LABS: ALBUMIN 3.7 GM/DL (3.4-5.0); ALT (GPT) 21 U/L (10-53); AST (GOT) 20 U/L (15-37); BICARBONATE 26.6 MEQ/L (21.0-32.0); BLOOD UREA NITROGEN 12 MG/DL (7-18); CALCIUM 8.3 MG/DL (8.5-10.1); CHLORIDE 104 MEQ/L (98-107); CREATININE 0.77 MG/DL (0.50-1.00); GLOMERULAR FILTRATION RATE 78 ML/MIN (>89); GLUCOSE,RANDOM 84 MG/DL (74-106); MAGNESIUM 2.1 MG/DL (1.5-2.5); SODIUM (NA) 137 MEQ/L (136-145)
[2017-11-23 12:10] LABS: ALKALINE PHOSPHATASE 56 U/L (45-117); TOTAL BILIRUBIN ADULT 0.1 MG/DL (0.2-1.0); TOTAL PROTEIN 7.1 GM/DL (6.4-8.2); TROPONIN I LESS THAN 0.02 NG/ML (0.02-0.05)
[2017-11-23 12:21] VITALS: BP 156/73; PULSE 81; RESP 17; O2SAT 98
--- NOTE | 2017-11-23 12:37 | RADRPT ---
EXAM DATE/TIME: 11/23/2017 12:00 [facility] COMPARISON: CHEST SINGLE AP, June 14, 2017, 12:37. INDICATIONS : Patient presents with severe pain between shouler blades and shortness of breath. MEDICAL HISTORY : None. SURGICAL HISTORY : Cholecystectomy. Hysterectomy. Ectopic ENCOUNTER: Initial ACUITY: 1 day PAIN SCORE: 10/10 LOCATION: Bilateral shoulder blades FINDINGS: A single view of the chest demonstrates the lungs to be symmetrically aerated without evidence of mas s, infiltrate or effusion. The cardiomediastinal contours are unremarkable. Osseous structures are intact. CONCLUSION: No acute disease. No significant change has occurred. Jerod Baer MD on November 23, 2017 at 12:35 Board Certified Radiologist. This report was verified electronically.
[2017-11-23] MEDS ORDERED: IOHEXOL 350 MG/ML 10 ML VIAL (for RAD DIAG) IVCONTRAST ONE (14:14)
--- NOTE | 2017-11-23 14:58 | EKG ---
Date Performed: 11/23/2017 Time Performed: 11:30:21 PTAGE: 56 years EKG: Sinus rhythm NORMAL ECG Compared to prior electrocardiogram, rate has increased PREVIOUS TRACING : 06/14/2017 11.54 DOCTOR: Sid Recinos Interpretating Date/Time 11/23/2017 14:56:43
--- NOTE | 2017-11-23 15:05 | RADRPT ---
EXAM DATE/TIME: 11/23/2017 14:09 [facility] COMPARISON: CTA THORACIC ABDOMINAL AORTA W 3D RECON, June 14, 2017, 14:06. INDICATIONS : Evaluate for aneursym, abdomen pain. IV CONTRAST: 99 cc Omnipaque 350 (iohexol) IV RADIATION DOSE: 15.77 CTDIvol (mGy) MEDICAL HISTORY : Hypertension. SURGICAL HISTORY : Hysterectomy. Cholecystectomy. ENCOUNTER: Initial ACUITY: 1 day PAIN SCALE: 4/10 LOCATION: Abdomen TECHNIQUE: Volumetric scanning was performed using a multi-row detector CT scanner. The data was post processed with a variety of visualization algorithms including full volume maximum intensity projection, multi -planar sliding thin slab reformation, curved planar reformation, and surface rendering techniques. Using automated exposure control and adjustment of the mA and/or kV according to patient size, radiat ion dose was kept as low as reasonably achievable to obtain optimal diagnostic quality images. DICOM format image data is available electronically for review and comparison. FINDINGS: LUNGS: Mild pulmonary parenchymal emphysema unchanged. Lungs are clear MEDIASTINUM: No enlarged lymph nodes. No pericardial effusion. ABDOMEN: Multiple hepatic cysts unchanged. Spleen, pancreas, and kidneys within normal limits and unchanged. L eft adrenal nodule unchanged. No evidence of bowel dilatation. Multiple colonic diverticula but no ev idence of acute diverticulitis. Appendix is within normal limits. No free air or free fluid. PELVIS: Urinary bladder within normal limits. No enlarged lymph nodes. THORACIC AORTA: Mild prominence of the ascending thoracic aorta again it measures 4.1 x 4.1 cm, unchanged from the pr ior study. No evidence of dissection. Coronary artery calcification is noted. Atherosclerotic disease and mild narrowing of the proximal left subclavian artery is unchanged. ABDOMINAL AORTA: Diffuse atherosclerotic disease in the abdomen is again seen with diffuse aortic calcification. Aorti c diameter is within normal limits. The celiac, SMA, bilateral renal arteries, and MONY are widely pat ent. PELVIC VESSELS: The internal iliac and external iliac vessels are patent without aneurysm or stenosis. CONCLUSION: 1. No significant interval change. Mild dilatation of the ascending thoracic aorta unchanged. Diffuse atherosclerotic disease of the abdominal aorta but abdominal aorta diameter is within normal limits. 2. Colonic diverticulosis again seen. 3. Left adrenal nodule unchanged and likely represents adenoma. Multiple hepatic cysts unchanged. Aung Bullard MD on November 23, 2017 at 14:53 Board Certified Radiologist. This report was verified electronically.
[2017-11-23 17:03] VITALS: BP 162/87; PULSE 77; RESP 17; TEMP 99.1; O2SAT 95
--- NOTE | 2017-11-23 18:15 | HHI.HP ---
HPI Service Chest pain center Primary Care Physician No Primary Care Physician Chief Complaint Shoulder pain and chest pain History of Present Illness Anxious and tearful 56-year-old lady who has been told in the past that she has a thoracic aortic aneurysm and is very fearful that this is getting worse. She has had constant dull deep pain in both scapular areas basically since April when she learned of the problem. This pain is constant can get up to 8 out of 10 is not precipitated or relieved by anything. She also has some anterior chest pain in the left side which she rates as 4 out of 10 that is intermittent. She states that she feels short of breath most of the time and very tired. She quit smoking when she learned that the diagnosis of the aneurysm in April. She has also been off of her antihypertensive medication for several months because she cannot afford they. Past medical history includes hypertension past surgical history section section cholecystectomy hysterectomy for fibroids Review of Systems Consitutional: COMPLAINS OF: Fatigue Respiratory: COMPLAINS OF: See HPI Cardiovascular: COMPLAINS OF: See HPI Neurologic: COMPLAINS OF: Tingling or numbness Musculoskeletal: COMPLAINS OF: Joint pain Psychiatric: COMPLAINS OF: Anxiety, Depression Past Family Social History Allergies: Coded Allergies: codeine (Unverified Allergy, Mild, ITCH, 11/23/17) Past Medical History Hypertension Past Surgical History Hysterectomy for fibroids Cholecystectomy Reported Medications Reported Meds & Active Scripts Active Metoprolol Tartrate 25 Mg Tab 25 Mg PO BID Flexeril (Cyclobenzaprine HCl) 10 Mg Tab 10 Mg PO TID Lortab (Hydrocodone-Acetaminophen) 7.5-325 Mg Tab 1 Tab PO Q6H PRN Active Ordered Medications Current Medications Medications (Trade) Dose Ordered Sig/[place] Route Start Time Stop Time Status Last Admin (NS Flush) 2 ml UNSCH PRN IVF 11/23/17 11:30 11/23/17 11:39 Family History Father 57 of congestive heart failure Mother age 30 and a fire Social History Quit smoking in April denies alcohol or drugs Physical Exam Vital Signs Vital Signs Date Time Temp Pulse Resp B/P (MAP) Pulse Ox O2 Delivery O2 Flow Rate FiO2 11/23/17 17:03 99.1 77 17 162/87 (112) 95 11/23/17 12:21 81 17 156/73 (100) 98 Room Air 11/23/17 11:28 98 Room Air 11/23/17 11:28 98 Room Air 11/23/17 11:25 99.4 81 19 177/93 (121 95 Physical Exam GENERAL: Anxious tearful woman who appears to be in pain SKIN: Warm and dry. HEAD: Atraumatic. Normocephalic. EYES: Pupils equal and round. Conjunctiva injected no scleral icterus. Extraocular movements intact ENT: No nasal bleeding or discharge. Mucous membranes pink and moist. NECK: Trachea midline. No JVD. No bruit CARDIOVASCULAR: Regular rate and rhythm. No gallop rub or murmur RESPIRATORY: No accessory muscle use. Clear to auscultation. Breath sounds equal bilaterally. Exquisitely tender along the left costochondral junctions, winces with pain GASTROINTESTINAL: Abdomen soft, non-tender, nondistended. Hepatic and splenic margins not palpable. MUSCULOSKELETAL: Extremities without clubbing, cyanosis, or edema. Osteoarthritic changes are noted in hands and feet NEUROLOGICAL: Awake and alert. No obvious cranial nerve deficits. Motor grossly within normal limits. Five out of 5 muscle strength in the arms and legs. Normal speech. PSYCHIATRIC: Appropriate mood and affect; insight and judgment normal. Vascular: Pulse in the left groin is mildly diminished, dorsalis pedis and posterior tibial on the left side are present but also mildly diminished. Patient complains of numbness in the feet but this was not tested. She has residual scarring to the middle toe on the right foot Laboratory Laboratory Tests Test 11/23/17 11:30 11/23/17 15:10 White Blood Count 9.6 Red Blood Count 4.56 Hemoglobin 13.5 Hematocrit 38.3 Mean Corpuscular Volume 83.8 Mean Corpuscular Hemoglobin 29.6 Mean Corpuscular Hemoglobin Concent 35.3 Red Cell Distribution Width 13.2 Platelet Count 349 Mean Platelet Volume 7.3 Neutrophils (%) (Auto) 64.0 Lymphocytes (%) (Auto) 25.4 Monocytes (%) (Auto) 7.9 Eosinophils (%) (Auto) 1.9 Basophils (%) (Auto) 0.8 Neutrophils # (Auto) 6.1 Lymphocytes # (Auto) 2.4 Monocytes # (Auto) 0.8 Eosinophils # (Auto) 0.2 Basophils # (Auto) 0.1 CBC Comment DIFF FINAL Differential Comment Prothrombin Time 10.4 Prothromb Time International Ratio 1.0 Activated Partial Thromboplast Time 26.2 Blood Urea Nitrogen 12 Creatinine 0.77 Random Glucose 84 Total Protein 7.1 Albumin 3.7 Calcium Level 8.3 Magnesium Level 2.1 Alkaline Phosphatase 56 Aspartate Amino Transf (AST/SGOT) 20 Alanine Aminotransferase (ALT/SGPT) 21 Total Bilirubin 0.1 Sodium Level 137 Potassium Level 3.7 Chloride Level 104 Carbon Dioxide Level 26.6 Anion Gap 6 Estimat Glomerular Filtration Rate 78 Total Creatine Kinase 180 Creatine Kinase MB 1.3 Troponin I LESS THAN 0.02 LESS THAN 0.02 Lipase 143 Result Diagram: 11/23/17 1130 11/23/17 1130 Imaging Chest x-ray shows no change in size of the aneurysm Course A large component of the chest pain may be anxiety about her aneurysm she will be given reassurance but also ruled out by protocol. Her blood pressure needs to be brought under control but she needs social service consult for long-term assistance with medication Caprini VTE Risk Assessment Caprini VTE Risk Assessment: No/Low Risk (score <= 1) VTE Pharm Contraindication: Caprini Risk Assessment Model Point Value = 1 Point Value = 2 Point Value = 3 Point Value = 5 Age 41-60 Minor surgery BMI > 25 kg/m2 Swollen legs Varicose veins or History of unexplained or recurrent spontaneous Oral contraceptives or hormone replacement Sepsis (< 1 month) Serious lung disease, including pneumonia (< 1 month) Abnormal pulmonary function Acute myocardial infarction Congestive heart failure (< 1 month) History of inflammatory bowel disease Medical patient at bed rest Age 61-74 Arthroscopic surgery Major open surgery (> 45 min) Laparoscopic surgery (> 45 min) Malignancy Confined to bed (> 72 hours) Immobilizing plaster cast Central venous access Age >= 75 History of VTE Family history of VTE Factor V Leiden Prothrombin [id number] Lupus anticoagulant Anticardiolipin antibodies Elevated serum homocysteine Heparin-induced thrombocytopenia Other congenital or acquired thrombophilia Stroke (< 1 month) Elective arthroplasty Hip, pelvis, or leg fracture Acute spinal cord injury (< 1 month) Prophylaxis Regimen Total Risk Factor Score Risk Level Prophylaxis Regimen 0-1 Low Early ambulation 2 Moderate Order ONE of the following: *Sequential Compression Device (SCD) *Heparin 5000 units SQ BID 3-4 Higher Order ONE of the following medications: *Heparin 5000 units SQ TID *Enoxaparin/Lovenox 40 mg SQ daily (WT < 150 kg, CrCl > 30 mL/min) *Enoxaparin/Lovenox 30 mg SQ daily (WT < 150 kg, CrCl > 10-29 mL/min) *Enoxaparin/Lovenox 30 mg SQ BID (WT < 150 kg, CrCl > 30 mL/min) AND/OR *Sequential Compression Device (SCD) 5 or more Highest Order ONE of the following medications: *Heparin 5000 units SQ TID (Preferred with Epidurals) *Enoxaparin/Lovenox 40 mg SQ daily (WT < 150 kg, CrCl > 30 mL/min) *Enoxaparin/Lovenox 30 mg SQ daily (WT < 150 kg, CrCl > 10-29 mL/min) *Enoxaparin/Lovenox 30 mg SQ BID (WT < 150 kg, CrCl > 30 mL/min) AND *Sequential Compression Device (SCD) Shon Feng MD Nov 23, 2017 18:15
[2017-11-23] MEDS ORDERED: SODIUM CHLORIDE 0.9% FLUSH 10 ML FLUSH IV FLUSH PRN (18:30)
[2017-11-23] MEDS ORDERED: TEMAZEPAM 15 MG CAP PO PRN (18:30)
[2017-11-23] MEDS: LISINOPRIL 10 MG TAB PO SCH (18:30)
[2017-11-23] MEDS ORDERED: ACETAMINOPHEN 500 MG CPLT PO PRN (18:30)
[2017-11-23 19:27] LABS: TROPONIN I LESS THAN 0.02 NG/ML (0.02-0.05)
[2017-11-23 20:32] VITALS: BP 138/79; PULSE 97; RESP 18; TEMP 95.7; O2SAT 96
[2017-11-23] MEDS: FAMOTIDINE 20 MG TAB PO SCH (20:39)
[2017-11-23] MEDS: METOPROLOL TARTRATE 25 MG TAB PO SCH (20:40)
[2017-11-23 23:08] VITALS: BP 115/61; PULSE 72; RESP 18; TEMP 98.1; O2SAT 96
[2017-11-24 04:40] VITALS: BP 128/78; PULSE 60; RESP 18; TEMP 98.4; O2SAT 98
[2017-11-24] MEDS: METOPROLOL TARTRATE 25 MG TAB PO SCH (08:00)
[2017-11-24 08:12] VITALS: BP 119/77; PULSE 68; RESP 21; TEMP 97.7; O2SAT 97
[2017-11-24] MEDS: FAMOTIDINE 20 MG TAB PO SCH (08:23)
[2017-11-24] MEDS: LISINOPRIL 10 MG TAB PO SCH (08:23)
--- NOTE | 2017-11-24 10:26 | HHI.DS ---
Discharge Summary Admission Date Nov 23, 2017 at 15:34 Admitting Diagnosis CHEST PAIN (1) Hypertension Diagnosis: Principal ICD Codes: I10 - Essential (primary) hypertension (2) Anxiety Diagnosis: Secondary ICD Codes: F41.9 - Anxiety disorder, unspecified (3) Ascending aortic aneurysm Diagnosis: Secondary ICD Codes: I71.2 - Thoracic aortic aneurysm, without rupture Status: Acute (4) Chest pain Diagnosis: Principal ICD Codes: R07.9 - Chest pain, unspecified Status: Resolved Procedures Ruled out for ACS with 3 sets of enzymes and 3 EKGs Chest showed no progression of ascending aneurysm and no additional pathology Diffuse atherosclerosis in the abdomen Brief History Very anxious patient presented with atypical chest pain in her scapula and left chest. She was evaluated for possible ascending aneurysmal dilation or disruption with study showing no no apparent progression of her aneurysm. She was obviously very emotionally distraught and worried about the aneurysm. Her blood pressures been quite high because she has been unable to obtain her medication for several months. With control of her blood pressure her pain resolved completely. She was ruled out for ACS. She was not felt to be a candidate for further evaluation at this time. [place] issue appears to be helping her find source for medication for control of her blood pressure. Social service consult was obtained. CBC/BMP: 11/23/17 1130 11/23/17 1130 Significant Findings Laboratory Tests Test 11/23/17 11:30 11/23/17 15:10 11/23/17 18:45 Calcium Level 8.3 MG/DL (8.5-10.1) Total Bilirubin 0.1 MG/DL (0.2-1.0) Estimat Glomerular Filtration Rate 78 ML/MIN (>89) Troponin I LESS THAN 0.02 NG/ML LESS THAN 0.02 NG/ML LESS THAN 0.02 NG/ML Imaging Studies proved negative for further dilation of the aneurysm Hospital Course Patient was admitted with atypical chest pain ruled out for ACS with 3 sets of enzymes and EKGs. Evaluation of her chest for aneurysmal dilatation or dissection proved to be negative. She did have some atherosclerosis in her thoracic aorta. Her chest pain resolved with control of her blood blood pressure. Blood pressure control is been an issue because she has been without her medications for several months. Her primary problem appears to be control of her hypertension in view of her known aneurysm. Social service consult was obtained to assist with obtaining medications. Pt Condition on Discharge: Stable Discharge Disposition: Discharge Home Discharge Instructions DIET: Follow Instructions for: Heart Healthy Diet, Low Sodium Diet Activities you can perform: Regular-No Restrictions Activities to avoid: Strenuous Activity Shon Feng MD Nov 24, 2017 10:26
--- NOTE | 2017-11-24 12:43 | EKG ---
Date Performed: 11/23/2017 Time Performed: 16:35:46 PTAGE: 56 years EKG: Sinus rhythm POSSIBLE LEFT ATRIAL ENLARGEMENT BORDERLINE ECG No significant change NO PREVIOUS TRACING DOCTOR: Shon Feng Interpretating Date/Time 11/24/2017 12:41:59
--- NOTE | 2017-11-24 12:46 | EKG ---
Date Performed: 11/23/2017 Time Performed: 20:44:45 PTAGE: 56 years EKG: Sinus rhythm NORMAL ECG PREVIOUS TRACING : 11/23/2017 11.30 DOCTOR: Shon Feng Interpretating Date/Time 11/24/2017 12:44:59
== END 2017-11-24 12:30 | disposition left against medical advice (07) ==
LOC: NEPE 11:03 → NEDA 15:34 → NEPFCDU 16:49
PROVIDERS: ADMIT Internal Medicine Interventional Cardiology; ATTEND Internal Medicine Interventional Cardiology
DX: R07.89 Other chest pain (principal); R06.02 Shortness of breath; I71.2 Thoracic aortic aneurysm, without rupture; M79.1 Myalgia; R42 Dizziness and giddiness; I10 Essential (primary) hypertension; F41.9 Anxiety disorder, unspecified; K57.30 Diverticulosis of large intestine without perforation or abscess without bleeding; E27.8 Other specified disorders of adrenal gland; K76.89 Other specified diseases of liver; Z87.891 Personal history of nicotine dependence; Z79.899 Other long term (current) drug therapy
CPT/HCPCS: 71045; 71275; 74174; 80053; 82550; 82552; 83690; 83735; 84484; 85025; 85610; 85730; 93005; 99285; G0378; J7040; Q9967

== ENCOUNTER 2018-02-19 14:17 | Emergency (ER) | payer MEDICAID, OTHER ==
[~2018-02-19] VITALS: Ht 167.6 cm; Wt 75.0 kg
[2018-02-19 14:49] VITALS: BP 125/68; PULSE 100; RESP 20; TEMP 99.3; O2SAT 96
[2018-02-19] MEDS ORDERED: ACETAMINOPHEN/HYDROcodone 325 MG/5 MG TAB PO ONE (16:45)
--- NOTE | 2018-02-19 16:54 | PD ---
HPI Chief Complaint: Injury Time Seen by Provider: 16:28 Travel History International Travel<30 days: No Contact w/Intl Traveler<30days: No Traveled to known affect area: No History of Present Illness HPI 57-year-old female presents emergency department via [facility] for right shoulder pain that started today after mechanical fall. Says that she missed a step on her porch she fell back landing on her right shoulder. Says her pain is moderate to severe and radiating to her elbow. Says she is having a difficult time moving her shoulder because of the intense pain. Movement increases her pain and rest somewhat decreases her pain. She denies numbness or tingling of the extremity. Denies head trauma, neck pain, back pain. She denies wrist or hand pain. PFSH Past Medical History AAA: Yes Blood Disorders: No Heart Rhythm Problems: No Cardiac Catheterization: No Cardiovascular Problems: Yes High Cholesterol: No Congestive Heart Failure: No Diabetes: No Diminished Hearing: No Hypertension: Yes Tetanus Vaccination: < 5 Years ?: Not Menopausal: Yes Ectopic : Yes (x 2) Past Surgical History Abdominal Surgery: No Cardiac Surgery: No Section: Yes Cholecystectomy: Yes Coronary Artery Bypass Graft: No Ear Surgery: No Endocrine Surgery: No Eye Surgery: No Genitourinary Surgery: No Gynecologic Surgery: Yes (1986 , ECTOPIC) Hysterectomy: Yes Oral Surgery: No Thoracic Surgery: No Other Surgery: Yes Social History Alcohol Use: No Tobacco Use: Yes Substance Use: No Allergies-Medications (Allergen,Severity, Reaction): Coded Allergies: codeine (Unverified Allergy, Mild, ITCH, 02/19/18) Reported Meds & Prescriptions Reported Meds & Active Scripts Active Hydrocodone-Acetaminophen 5-325 mg Tab 1 Tab PO Q6H PRN 3 Days Review of Systems Except as stated in HPI: all other systems reviewed are Neg Physical Exam Narrative GENERAL: Well-nourished, well-developed patient, in moderate distress SKIN: Focused skin assessment warm/dry. No rashes or lesions. HEAD: Normocephalic. Atraumatic. EYES: No scleral icterus. No injection or drainage. PERRLA, EOMI THROAT: No pharyngeal injection, exudates, or tonsillar hypertrophy. Airway is patent. NECK: Supple, nontender. No meningeal signs. Trachea midline. No JVD. No midline tenderness CARDIOVASCULAR: Regular rate and rhythm without murmurs, gallops, or rubs. RESPIRATORY: Breath sounds equal bilaterally. No accessory muscle use. No wheezes, rales, or rhonchi MUSCULOSKELETAL: No cyanosis, or edema. Right shoulder- no obvious deformities, exquisitely tender to palpation from the shoulder to the elbow, neurovascularly intact. 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 BACK: No CVA tenderness. No rash. No point tenderness on palpation of the spine. NEUROLOGICAL: Awake and alert. Cranial nerves II through XII intact. Motor and sensory grossly within normal limits. Five out of 5 muscle strength in all muscle groups. Normal speech. Data Data Last Documented VS Vital Signs Date Time Temp Pulse Resp B/P (MAP) Pulse Ox O2 Delivery O2 Flow Rate FiO2 02/19/18 14:49 99.3 100 20 125/68 (87) 96 Orders Orders Shoulder, Complete (>2vws) (02/19/18 ) Acetamin-Hydrocod 325-5 Mg (Bonaparte 5-325 (02/19/18 16:45) Elbow, Limited (Ap&Lat) (02/19/18 ) Splint Or Brace Apply/Monitor (02/19/18 17:46) Ed Discharge Order (02/19/18 17:46) MDM Medical Decision Making Medical Screen Exam Complete: Yes Emergency Medical Condition: Yes Differential Diagnosis Right shoulder fracture, abrasion, contusion, rotator cuff injury Narrative Course 57-year-old female presents emergency department for evaluation of right shoulder pain that started after fall today. She denies head trauma. Denies neck or back pain. X-ray ordered to rule out fracture. Hydrocodone administered for pain in the emergency department. It appears the patient has a proximal humerus fracture. Patient will be given a sling and swath. Advised to follow-up with an orthopedic physician. Hydrocodone for pain. Advised to use the sling and swath throughout the day. Minimize movement of her shoulder until cleared by orthopedics. Advised to return for worsening or persistent symptoms. Diagnosis Primary Impression: Elbow contusion Qualified Codes: S50.01XA - Contusion of right elbow, initial encounter Additional Impression: Humerus fracture Qualified Codes: S42.201A - Unspecified fracture of upper end of right humerus , initial encounter for closed fracture Referrals: Artemio Barth MD, Brittney Lewis MD Martin, Jeffrey W MD Orthopedist Departure Forms: Tests/Procedures, Work Release Enter return to work date: Feb 22, 2018 Additional Instructions: Use ice or heat for symptom relief. If no contraindications, you may use Tylenol or Motrin per package instructions for your pain. Elevate the joint above the heart to reduce swelling. You may use compression with Pierre wrap or similar to reduce swelling. If symptoms persist or worsen, return to the emergency department. Follow up with your primary care physician within 2 days. Scripts Hydrocodone-Acetaminophen (Hydrocodone-Acetaminophen) 5-325 mg Tab 1 TAB PO Q6H Y for PAIN for 3 Days, #12 TAB 0 Refills Prov: Didier Dean MD 02/19/18 Disposition: 01 DISCHARGE HOME Condition: Stable Jojo Landaverde Feb 19, 2018 16:54
--- NOTE | 2018-02-19 17:24 | RADRPT ---
EXAM DATE: 02/19/2018 5:18 PM EDT AGE/SEX: 57 years / Female INDICATIONS: Right shoulder pain; fall off ladder today. CLINICAL DATA: This is the patient's initial encounter. Patient reports that signs and symptoms have been present for 1 day and indicates a pain score of 10/10. MEDICAL/SURGICAL HISTORY: None. None. COMPARISON: No prior exams available for comparison. FINDINGS: There is a fracture of the right proximal humerus injections through the humeral head and greater tub erosity. There is no dislocation. CONCLUSION: Right proximal humeral fracture. Electronically signed by: Olga Iniguez MD 02/19/2018 5:23 PM EDT
[2018-02-19] MEDS ORDERED: HYDR-3516 PO (17:31)
--- NOTE | 2018-02-19 17:31 | RADRPT ---
EXAM DATE: 02/19/2018 5:25 PM EDT AGE/SEX: 57 years / Female INDICATIONS: Right elbow pain; fall off ladder today. CLINICAL DATA: This is the patient's initial encounter. Patient reports that signs and symptoms have been present for 1 day and indicates a pain score of 10/10. MEDICAL/SURGICAL HISTORY: None. None. COMPARISON: No prior exams available for comparison. FINDINGS: Bony structures are intact and in normal alignment. Joints are intact without dislocation or signifi cant arthropathy. Osseous density is normal. Soft tissues are unremarkable. No radiopaque foreign bodies seen. CONCLUSION: No acute abnormality. Electronically signed by: Brody Moreland MD 02/19/2018 5:29 PM EDT
== END 2018-02-19 18:06 | disposition home or self-care (01) ==
LOC: NEPK 14:17
DX: S42.201A Unspecified fracture of upper end of right humerus, initial encounter for closed fracture (principal); S50.01XA Contusion of right elbow, initial encounter; W10.9XXA Fall (on) (from) unspecified stairs and steps, initial encounter; Y92.008 Other place in unspecified non-institutional (private) residence as the place of occurrence of the external cause
CPT/HCPCS: 29240; 73030; 73070